=== PATIENT | female | born 1960 | race Caucasian/White ===

== ENCOUNTER → 2016-11-15 | Outpatient (CLI) | payer BC ==
--- NOTE | 2016-11-15 10:48 | BD ---
EXAMINATION TYPE: MG DEXA axial skeleton. DATE OF EXAM: 11/15/2016 10:01 AM COMPARISON: NONE CLINICAL HISTORY: Postmenopausal female and disorder of bone per order. Height: 5 FT 5 IN Weight: 217 FRAX RISK QUESTIONS: Alcohol (3 or more units per day): NO Family History (Parent hip fracture): NO Glucocorticoids (More than 3mos): NO (Ex: prednisone, prednisolone, methylprednisolone, dexamethasone, and hydrocortisone). History of Fracture in Adulthood: NO Secondary Osteoporosis: 1. Type 1 Diabetes: NO 2. Hyperthyroidism: NO 3. Menopause before 45: YES 4. Malnutrition: NO 5. Chronic liver disease: NO Rheumatoid Arthritis: YES Current Tobacco Use: NO RISK FACTORS HISTORY OF: Active: Postmenopausal woman: TOTAL HYST AGE 46 MEDICATIONS: Thyroid Medications: YES Which medication: Levothyroxine How Long: APPROX 15 YRS Osteoporosis Medications: Which medication: How Long: Additional Medications: LEVOTHYROXINE, BLOOD PRESSURE MEDS ,SLEEP AID Additional History: EXAM MEASUREMENTS: Bone mineral densitometry was performed using the [employer] System. Bone mineral density as measured about the Lumbar spine is: ----- L1-L4(G/cm2): 1.112 T Score Values are as follows: ----- L2: -1.0 ----- L3: -1.1 ----- L4: -0.6 ----- L1-L4: -0.6 BASELINE Bone mineral density about the R hip (g/cm2): 0.880 Bone mineral density about the L hip (g/cm2): 0.874 T Score values are as follows: -----R Neck: -1.1 -----L Neck: -1.2 -----R Total: -0.6 -----L Total: -0.2 BASELINE IMPRESSION: Osteopenia (T Score between -2.5 and -1 as noted by T score values at femoral neck level in both hips . There is slightly increased risk of fracture and the patient may be considered for treatment. Alexandra canela 2-5 years. NOTE: T-SCORE=SD OF THE YOUNG ADULT MEAN.
--- NOTE | 2016-11-16 07:21 | MM ---
Reason for exam: screening (asymptomatic). Last mammogram was performed 1 year and 10 months ago. History: Patient is postmenopausal and history of other cancer. Family history of premenopausal breast cancer in sister at age 55, breast cancer in sister at age 55, and premenopausal breast cancer in sister at age 40. Cancelled Left Mammotome of the left breast, June 28, 2007. Physical Findings: A clinical breast exam by your physician is recommended on an annual basis and results should be correlated with mammographic findings. MG Screening Mammo w CAD Bilateral CC and MLO view(s) were taken. Prior study comparison: January 20, 2015, bilateral MG screening mammo w CAD. January 07, 2014, bilateral MG screening mammo w CAD. The breast tissue is heterogeneously dense. This may lower the sensitivity of mammography. Finding: There are typically benign round, diffuse/scattered and grouped calcifications in both breasts. There is no discrete abnormality. ASSESSMENT: Benign, BI-RAD 2 RECOMMENDATION: Routine screening mammogram of both breasts in 1 year.
== END | disposition home or self-care (01) ==
LOC: RADMAMWWP 08:45
PROVIDERS: ATTEND Family Medicine
DX: Z12.31 Encounter for screening mammogram for malignant neoplasm of breast (principal); Z80.3 Family history of malignant neoplasm of breast; M85.852 Other specified disorders of bone density and structure, left thigh; M85.851 Other specified disorders of bone density and structure, right thigh; N95.1 Menopausal and female climacteric states
CPT/HCPCS: 77080; G0202

== ENCOUNTER → 2021-03-28 | Outpatient (CLI) | payer OTHER ==
[2021-03-28 17:57] LABS: African American GFR (CKD) 61.9 (60.0-200.0); Anion Gap 10.6 mmol/L (4.00-12.00); BUN/Creat Ratio 20.91 Ratio (12.00-20.00); Calcium 9.5 mg/dL (8.7-10.3); Carbon Dioxide 22.4 mmol/L (21.6-31.8); Magnesium 1.8 mg/dL (1.5-2.4); Non-African American GFR(CKD) 53.4 (60.0-200.0); Potassium 4.4 mmol/L (3.5-5.5)
== END | disposition home or self-care (01) ==
LOC: LABWHC1 07:20
PROVIDERS: ATTEND Internal Medicine
DX: I42.8 Other cardiomyopathies (principal); I50.9 Heart failure, unspecified
CPT/HCPCS: 36415; 80048; 83735; 83880